=== PATIENT | male | born 1980 | race Two or more races ===

== ENCOUNTER 2018-01-29 10:12 | Emergency (ER) | payer MEDICAID ==
[~2018-01-29] VITALS: Ht 167.6 cm; Wt 81.6 kg
[2018-01-29 10:35] VITALS: BP 120/78
== END 2018-01-29 13:22 | disposition home or self-care (01) ==
LOC: ER 10:12
DX: S96.811A Strain of other specified muscles and tendons at ankle and foot level, right foot, initial encounter (principal); S66.811A Strain of other specified muscles, fascia and tendons at wrist and hand level, right hand, initial encounter; S70.02XA Contusion of left hip, initial encounter; R07.9 Chest pain, unspecified; V49.49XA Driver injured in collision with other motor vehicles in traffic accident, initial encounter; Y93.89 Activity, other specified; Y99.8 Other external cause status; Y92.89 Other specified places as the place of occurrence of the external cause
CPT/HCPCS: 71046; 73130; 73630; 93005